=== PATIENT | male | born 1960 | race Caucasian/White ===

== ENCOUNTER 2022-10-21 14:17 | Inpatient (IN) | payer OTHER, MEDICAID ==
[~2022-10-21] VITALS: Ht 154.9 cm; Wt 49.9 kg
[2022-10-21] MEDS ORDERED: ONDANSETRON HCL 4 MG/2 ML VIAL IVP ONE (14:30)
[2022-10-21] MEDS ORDERED: PANTOPRAZOLE SODIUM 40 MG/VIAL (PROTONIX) IVP ONE (14:30)
[2022-10-21 15:21] VITALS: BP_SYST 116
[2022-10-21 15:30] LABS: HEMATOCRIT 27.9 % (36-54); HEMOGLOBIN 9.1 g/dL (14.0-18.0); LYMPHOCYTES # (AUTO) 0.5 K/uL (1.0-5.5); LYMPHOCYTES % (AUTO) 5.3 % (20.5-51.5); MEAN CORPUSCULAR HEMOGLOBIN 29 pg (27-31); MEAN CORPUSCULAR HGB CONC 33 % (32-36); MEAN CORPUSCULAR VOLUME 90 fL (79.0-98.0); MONOCYTES # (AUTO) 0.1 K/uL (0.0-1.0); MONOCYTES % (AUTO) 1.4 % (1.7-9.3); NEUTROPHILS % (AUTO) 93.3 % (40.0-70.0); PLATELET COUNT (AUTO) 120 K/uL (130-430); RED BLOOD CELL COUNT(AUTO) 3.11 MIL/uL (4.2-6.2); RED CELL DISTRIBUTION WIDTH 16.8 % (9.0-15.0); WHITE BLOOD COUNT (AUTO) 9.7 K/uL (4.8-10.8)
[2022-10-21 15:42] LABS: INR 2.7 (0.80-1.20); PROTHROMBIN TIME 26.3 SECS (9.5-12.5)
[2022-10-21 15:48] LABS: ALBUMIN 1.5 g/dL (3.4-4.8); CREATININE 2.14 mg/dL (0.55-1.30); TOTAL BILIRUBIN 1.1 mg/dL (0.0-1.0)
[2022-10-21] MEDS: NACL 0.9% 1,000 ML IV SCH ×2 (15:51→16:14)
[2022-10-21] MEDS ORDERED: DEXTROSE 50% JECT 50 ML DISP.SYRIN ONE (16:10)
[2022-10-21] MEDS ORDERED: DEXTROSE 50% JECT 50 ML DISP.SYRIN IVP ONE ×2 (16:15→16:45)
[2022-10-21] MEDS ORDERED: CALCIUM GLUC 1 GM/100ML-NACL 100 ML IV ONE (16:30)
[2022-10-21] MEDS ORDERED: ALBUMIN HUMAN 25% 100 ML IV ONE (16:30)
[2022-10-21] MEDS ORDERED: PHYTONADIONE 10 MG/ML AMP SUBCUT ONE ×2 (18:00→23:00)
[2022-10-21] MEDS: D5/0.45 NS 1,000 ML IV SCH (18:09)
[2022-10-21 18:40] LABS: FREE T4 (FREE THYROXINE) 0.8 ng/dl (0.8-1.5); THYROID STIMULATING HORMONE 9.86 uIu/mL (0.36-3.74)
[2022-10-21 18:54] LABS: TOTAL IRON BIND. CAPACITY 74 ug/dL (250-450)
[2022-10-21] MEDS ORDERED: ACETAMINOPHEN 325 MG TABLET PO PRN (19:15)
[2022-10-21] MEDS ORDERED: traMADol HCL HCL 50 MG TABLET (ULTRAM) PO PRN (19:15)
[2022-10-21 19:28] LABS: HEMATOCRIT 22.7 % (36-54); MEAN CORPUSCULAR HEMOGLOBIN 30 pg (27-31); MEAN CORPUSCULAR HGB CONC 33 % (32-36); MEAN CORPUSCULAR VOLUME 90 fL (79.0-98.0); PLATELET COUNT (AUTO) 99 K/uL (130-430); RED BLOOD CELL COUNT(AUTO) 2.51 MIL/uL (4.2-6.2); RED CELL DISTRIBUTION WIDTH 16.5 % (9.0-15.0)
[2022-10-21] MEDS ORDERED: ACET325T PO (19:31)
[2022-10-21 19:32] LABS: HEMOGLOBIN 7.4 g/dL (14.0-18.0)
[2022-10-21] MEDS ORDERED: [UNRECOGNIZED DRUG - CODE] PO (19:32)
[2022-10-21 19:33] LABS: BAND % (MANUAL) 11 % (0-6); BASOPHILS % (MANUAL) 0 % (0-2); EOSINOPHILS % (MANUAL) 0 % (0-7); LYMPHOCYTES % (MANUAL) 6 % (20-46); MONOCYTES % (MANUAL) 1 % (0-11)
[2022-10-21] MEDS ORDERED: AMLO5TAB4 PO (19:33)
[2022-10-21] MEDS ORDERED: MICA100V3 IV (19:35)
[2022-10-21] MEDS ORDERED: HYDR-3917 PO (19:36)
[2022-10-21] MEDS ORDERED: OLAN10TA71 PO (19:37)
[2022-10-21] MEDS ORDERED: OLAN5TAB71 PO (19:37)
[2022-10-21] MEDS ORDERED: PRO40 PO (19:40)
[2022-10-21] MEDS ORDERED: QUET200T PO (19:41)
[2022-10-21] MEDS ORDERED: QUET400T PO (19:41)
[2022-10-21] MEDS ORDERED: VALP250S3 PO (19:42)
[2022-10-21 21:15] VITALS: BP_SYST 100
[2022-10-21] MEDS: PANTOPRAZOLE SODIUM 40 MG/VIAL (PROTONIX) IVP SCH (23:53)
[2022-10-22 00:07] VITALS: BP_SYST 126
[2022-10-22] MEDS: LEVOTHYROXINE SODIUM 0.025 MG TABLET PO SCH (06:16)
[2022-10-22 07:23] LABS: ALBUMIN 1.5 g/dL (3.4-4.8); CREATININE 2.14 mg/dL (0.55-1.30); INR 3.5 (0.80-1.20); PROTHROMBIN TIME 34.6 SECS (9.5-12.5); TOTAL BILIRUBIN 1.1 mg/dL (0.0-1.0)
[2022-10-22 07:37] LABS: EOSINOPHILS % (AUTO) 0.1 % (0.0-4.0); LYMPHOCYTES # (AUTO) 0.5 K/uL (1.0-5.5); LYMPHOCYTES % (AUTO) 4.6 % (20.5-51.5); MEAN CORPUSCULAR HEMOGLOBIN 29 pg (27-31); MEAN CORPUSCULAR HGB CONC 32 % (32-36); MEAN CORPUSCULAR VOLUME 90 fL (79.0-98.0); MONOCYTES # (AUTO) 0.1 K/uL (0.0-1.0); MONOCYTES % (AUTO) 0.7 % (1.7-9.3); NEUTROPHILS # (AUTO) 10.1 K/uL (1.8-7.7); NEUTROPHILS % (AUTO) 94.6 % (40.0-70.0); PLATELET COUNT (AUTO) 101 K/uL (130-430); RED BLOOD CELL COUNT(AUTO) 2.42 MIL/uL (4.2-6.2); RED CELL DISTRIBUTION WIDTH 16.5 % (9.0-15.0); WHITE BLOOD COUNT (AUTO) 10.7 K/uL (4.8-10.8)
[2022-10-22] MEDS: D5/0.45 NS 1,000 ML IV SCH ×2 (07:41→14:00)
[2022-10-22 07:42] LABS: HEMATOCRIT 21.8 % (36-54)
[2022-10-22 08:00] VITALS: BP_SYST 86
[2022-10-22] MEDS: MULTIVITS,CA,MINERALS/IRON/FA 1 TABLET PO SCH (08:09)
[2022-10-22] MEDS ORDERED: NALOXONE HCL 0.4 MG/ML AMP (NARCAN) IVP PRN (09:30)
[2022-10-22] MEDS ORDERED: MORPHINE 4 MG INJ. 4 MG/ML VIAL IVP PRN (09:30)
[2022-10-22] MEDS: PANTOPRAZOLE SODIUM 40 MG/VIAL (PROTONIX) IVP SCH ×2 (09:43→21:15)
[2022-10-22] MEDS: SOD FERRIC GLUC COMPLEX/SUC 125 MG in NS 100 ML IV SCH (09:46)
[2022-10-22 11:26] VITALS: BP_SYST 101
[2022-10-22 11:43] LABS: TOTAL IRON BIND. CAPACITY 53 ug/dL (250-450)
[2022-10-22 15:49] VITALS: BP_SYST 91
[2022-10-22] MEDS ORDERED: EPOETIN ALFA-EPBX 4,000 UNITS/ML VIAL SUBCUT SCH (17:00)
[2022-10-22 20:00] VITALS: BP_SYST 88
[2022-10-23] MEDS: D5/0.45 NS 1,000 ML IV SCH ×2 (00:08→05:59)
[2022-10-23 01:42] VITALS: BP_SYST 106
[2022-10-23 02:02] LABS: BILIRUBIN,URINE NEGATIVE (NEGATIVE); BLOOD, URINE 3+ (NEGATIVE); CLARITY/URINE CLOUDY (CLEAR); COLOR,URINE YELLOW (YELLOW); GLUCOSE,URINE NEGATIVE (NEGATIVE); KETONES,URINE NEGATIVE (NEGATIVE); LEUKOCYTE ESTERASE ,URINE 3+ (NEGATIVE); NITRITE, URINE NEGATIVE (NEGATIVE); PROTEIN URINE 1+ (NEGATIVE); UROBILINOGEN,URINE 0.2 (0.2-1.0)
[2022-10-23 02:07] LABS: BACTERIA,URINE MANY /HPF (None Seen); WBC,URINE >100 /HPF (0-3)
[2022-10-23] MEDS: LEVOTHYROXINE SODIUM 0.025 MG TABLET PO SCH (05:58)
[2022-10-23 08:00] VITALS: BP_SYST 90
[2022-10-23 08:05] LABS: ALBUMIN 1.5 g/dL (3.4-4.8); CALCIUM 7.2 mg/dL (8.4-11.0); CREATININE 2.51 mg/dL (0.55-1.30); TOTAL BILIRUBIN 1.3 mg/dL (0.0-1.0)
[2022-10-23 08:06] LABS: ALPHA-1-ANTITRYPSIN, S 221 mg/dL (101-187)
[2022-10-23 08:06] LABS: FERRITIN 748 ng/mL (30-400)
[2022-10-23] MEDS: PANTOPRAZOLE SODIUM 40 MG/VIAL (PROTONIX) IVP SCH (08:11)
[2022-10-23] MEDS: SOD FERRIC GLUC COMPLEX/SUC 125 MG in NS 100 ML IV SCH (08:12)
[2022-10-23 08:23] LABS: BASOPHILS % (AUTO) 0.1 % (0.0-2.0); EOSINOPHILS % (AUTO) 0.1 % (0.0-4.0); HEMATOCRIT 32.6 % (36-54); LYMPHOCYTES # (AUTO) 0.3 K/uL (1.0-5.5); LYMPHOCYTES % (AUTO) 13.1 % (20.5-51.5); MEAN CORPUSCULAR HEMOGLOBIN 29 pg (27-31); MEAN CORPUSCULAR HGB CONC 33 % (32-36); MEAN CORPUSCULAR VOLUME 89 fL (79.0-98.0); MONOCYTES # (AUTO) 0.1 K/uL (0.0-1.0); MONOCYTES % (AUTO) 2.7 % (1.7-9.3); NEUTROPHILS # (AUTO) 1.7 K/uL (1.8-7.7); PLATELET COUNT (AUTO) 68 K/uL (130-430); RED BLOOD CELL COUNT(AUTO) 3.65 MIL/uL (4.2-6.2); RED CELL DISTRIBUTION WIDTH 16.3 % (9.0-15.0)
[2022-10-23] MEDS: MULTIVITS,CA,MINERALS/IRON/FA 1 TABLET PO SCH (09:00)
[2022-10-23 09:03] LABS: HEMOGLOBIN 10.6 g/dL (14.0-18.0)
[2022-10-23 09:54] VITALS: BP_SYST 90
[2022-10-23 11:00] VITALS: BP_SYST 147
[2022-10-23] MEDS ORDERED: PROPOFOL DRIP 100 ML IV PRN (11:15)
[2022-10-23] MEDS ORDERED: SODIUM BICARBONATE 8.4% JECT 50 MEQ/50 ML SYRINGE IVP ONE ×2 (11:38→12:15)
[2022-10-23] MEDS ORDERED: ATROPINE SULFATE 1 MG/10 ML SYRINGE IVP ONE (11:38)
[2022-10-23] MEDS ORDERED: DEXTROSE 50% JECT 50 ML DISP.SYRIN IVP ONE (11:38)
[2022-10-23] MEDS ORDERED: NOREPINEPHRINE 4 MG/4 ML VIAL IV ONE ×2 (11:38→13:53)
[2022-10-23] MEDS ORDERED: EPINEPHrine JECT 0.1 MG/ML SYR IVP ONE (11:38)
[2022-10-23 11:48] LABS: ALANINE AMINOTRANSFERASE 149 U/L (12-78); ALBUMIN 1.1 g/dL (3.4-4.8); ANION GAP 9 (5-15); ASPARTATE AMINOTRANSFERASE 314 U/L (10-37); CHLORIDE 97 mmol/L (98-107); CREATININE 2.51 mg/dL (0.55-1.30); GFR AFRICAN AMERICAN 34 mL/min (>90); GLUCOSE 179 mg/dL (70-99); PHOSPHORUS 6.8 mg/dL (2.7-4.5); UREA NITROGEN, BLOOD 66 mg/dL (8-21)
[2022-10-23 12:00] VITALS: BP_SYST 99
[2022-10-23 12:00] LABS: CALCIUM 6.6 mg/dL (8.4-11.0); MEAN CORPUSCULAR HEMOGLOBIN 29 pg (27-31); MEAN CORPUSCULAR HGB CONC 32 % (32-36); MEAN CORPUSCULAR VOLUME 91 fL (79.0-98.0); RED BLOOD CELL COUNT(AUTO) 3.08 MIL/uL (4.2-6.2); RED CELL DISTRIBUTION WIDTH 16.9 % (9.0-15.0); WHITE BLOOD COUNT (AUTO) 2.4 K/uL (4.8-10.8)
[2022-10-23 12:07] LABS: FOLATE (FOLIC ACID) 4.6 ng/mL (>3.0)
[2022-10-23 12:22] LABS: PLATELET COUNT (AUTO) 38 K/uL (130-430)
[2022-10-23 13:07] LABS: AFP, TUMOR MARKER <1.8 ng/mL (0.0-8.4); HEPATITIS A AB, IgM Negative (Negative); HEPATITIS B CORE AB, IgM Negative (Negative); HEPATITIS B SURFACE AG Negative (Negative)
[2022-10-23] MEDS ORDERED: VASOPRESSIN 20 UNITS in NS 99 ML IV PRN (13:30)
[2022-10-23 13:58] LABS: BAND % (MANUAL) 26 % (0-6); BASOPHILS % (MANUAL) 0 % (0-2); EOSINOPHILS % (MANUAL) 0 % (0-7); LYMPHOCYTES % (MANUAL) 31 % (20-46); METAMYELOCYTES % 3 % (0-0); MONOCYTES % (MANUAL) 12 % (0-11)
[2022-10-23] MEDS ORDERED: SODIUM BICARBONATE 8.4% JECT 50 MEQ/50 ML SYRINGE ONE (14:49)
[2022-10-23] MEDS ORDERED: METHYLPREDNISOLONE SOD SUCC 40 MG/ML VIAL IVP SCH (15:00)
[2022-10-30 11:06] LABS: ANTI-SMOOTH MUSCLE AB 9 Units (0-19)
== END 2022-10-23 20:15 | DRG 871 ==
LOC: SED 14:17 → EDBD 16:12 → STU 16:12 → SIC 10-23 10:27
PROVIDERS: ADMIT Internal Medicine; ATTEND Internal Medicine
PROC: 30233N1 Transfusion of Nonautologous Red Blood Cells into Peripheral Vein, Percutaneous Approach (ICD-10-PCS; 2022-10-22)
PROC: 5A12012 Performance of Cardiac Output, Single, Manual (ICD-10-PCS; principal; 2022-10-23)
PROC: 0BH17EZ Insertion of Endotracheal Airway into Trachea, Via Natural or Artificial Opening (ICD-10-PCS; 2022-10-23)
PROC: 5A1935Z Respiratory Ventilation, Less than 24 Consecutive Hours (ICD-10-PCS; 2022-10-23)
DX: A41.9 Sepsis, unspecified organism (principal); D65 Disseminated intravascular coagulation [defibrination syndrome]; E43 Unspecified severe protein-calorie malnutrition; J69.0 Pneumonitis due to inhalation of food and vomit; J96.01 Acute respiratory failure with hypoxia; R65.21 Severe sepsis with septic shock; K92.2 Gastrointestinal hemorrhage, unspecified; D62 Acute posthemorrhagic anemia; N17.9 Acute kidney failure, unspecified; D68.9 Coagulation defect, unspecified; D68.59 Other primary thrombophilia; N39.0 Urinary tract infection, site not specified; J44.9 Chronic obstructive pulmonary disease, unspecified; R13.10 Dysphagia, unspecified; E86.0 Dehydration; E03.9 Hypothyroidism, unspecified; I73.9 Peripheral vascular disease, unspecified; R74.01 Elevation of levels of liver transaminase levels; K74.60 Unspecified cirrhosis of liver; I46.9 Cardiac arrest, cause unspecified; Z66 Do not resuscitate; K76.0 Fatty (change of) liver, not elsewhere classified; N18.9 Chronic kidney disease, unspecified
CPT/HCPCS: 36415; 71045; 76376; 76700-TC; 80053; 80074; 81000; 82103; 82105; 82140; 82390; 82607; 82728; 82746; 82803; 82962; 83516; 83540; 83550; 83735; 84100; 84439; 84443; 84484; 85007; 85025; 85027; 85610-TC; 85730-TC; 86038; 86870; 86886; 86900; 86901; 86920; 87070-TC; 87081; 87086; 87101; 87186-TC; 92610-GN; 92950; 93005; 96374; 96375; 99291; C9113; G0378; J0171; J0461; J1956; J2270; J2405; J2704; J2916; J3430; J3490; P9021; P9046; Q5106